=== PATIENT | female | born 1985 | race Two or more races ===

== ENCOUNTER 2016-08-07 16:45 | Inpatient (IN) | payer MEDICAID ==
[2016-08-07] MEDS ORDERED: OXYTOCIN IN LR 500 ML IV ONE ×2 (19:01→19:37)
[2016-08-07] MEDS ORDERED: LACTATED RINGERS 1,000 ML IV PRN (19:01)
[2016-08-07] MEDS ORDERED: IV START KIT ONE (19:36)
[2016-08-07] MEDS ORDERED: OXYTOCIN 10 UNITS/ML VIAL ONE (19:36)
[2016-08-07] MEDS ORDERED: LIDOCAINE Viscous 2% 15 ML UDCUP ONE (19:37)
[2016-08-07] MEDS ORDERED: LIDOCAINE 1% (PRES FREE) 30 ML VIAL ONE (19:37)
[2016-08-07] MEDS ORDERED: PUMP TUBING ONE (19:37)
[2016-08-07] MEDS ORDERED: MINERAL OIL 25 ML BOT ONE (19:37)
[2016-08-07] MEDS ORDERED: LACTATED RINGERS 1,000 ML ONE (19:37)
[2016-08-07 21:26] LABS: HEMATOCRIT 34.6 % (37.0-47.0); MEAN CELL VOLUME 84.6 fl (81.0-99.0); MEAN CORPUSCULAR HEMOGLOBIN 26.9 pg (27.0-31.0); MEAN CORPUSCULAR HGB CONC 31.8 g/dl (33.0-37.0); RED CELL DISTRIBUTION WIDTH 14.8 % (11.5-14.5)
[2016-08-07] MEDS ORDERED: OXYTOCIN IN NS 500 ML IV PRN (21:27)
[2016-08-07] MEDS ORDERED: LACTATED RINGERS 1,000 ML IV SCH (21:30)
[2016-08-07] MEDS: OXYTOCIN IN LR 500 ML IV PRN ×3 (21:43→23:41)
[2016-08-08] MEDS: OXYTOCIN IN LR 500 ML IV PRN ×4 (00:33→05:07)
[2016-08-08] MEDS ORDERED: EPIDURAL PUMP SET ONE (05:07)
[2016-08-08] MEDS ORDERED: FENTANYL/ROPIVACAINE EPIDURAL 0 ML EP ONE (05:07)
[2016-08-08] MEDS ORDERED: DOCUSATE SODIUM 100 MG CAPSULE PO PRN ×2 (05:49→18:08)
[2016-08-08] MEDS ORDERED: SENNOSIDES 8.6 MG TABLET PO PRN ×2 (05:49→18:08)
[2016-08-08] MEDS ORDERED: MAGNESIUM HYDROXIDE 30 ML UDCUP PO PRN ×2 (05:49→18:08)
[2016-08-08] MEDS ORDERED: BENZOCAINE/MENTHOL 60 APPLIC/BOT TP PRN ×2 (05:49→18:08)
[2016-08-08] MEDS ORDERED: LANOLIN 50 APPLIC/7G TUBE TP PRN ×2 (05:49→18:08)
[2016-08-08] MEDS ORDERED: HYDROCODONE/ACETAMINOPHEN 5/325MG TABLET PO PRN (05:49)
[2016-08-08] MEDS ORDERED: IBUPROFEN 800 MG TABLET PO PRN ×2 (05:49→18:08)
[2016-08-08 10:33] LABS: HIV-1/2 RAPID SCREEN NEGATIVE (NEGATIVE)
[2016-08-08] MEDS: LACTATED RINGERS 1,000 ML IV SCH ×2 (10:57→16:53)
--- NOTE | 2016-08-08 12:06 | PCMAN ---
OB Admission Note - History : 5 Term: 4 : 0 Abortions (S&E): 0 Livin Gestational Age (weeks): 40 Days (#/7): 0 Admit Cervical Dilation:: 3 Admit Cervical Effacement (%):: 50 Admit Station:: -3 Admit Presentaton:: Vertex Membrane Status: Intact Contractions: Yes Contraction Frequency:: q 3-5 min Heart Rate:: 150 Status:: reassuring EFW:: 7 Lbs Summary of Course:: Unremarkable course. Presents to [facility] with excruciating lower abdominal pain that began this morning at 8am. Pain only present when she moves her R leg or walks. She is comfortable while lying down. She does not feel the very regular contractions she has been having. No LOF, abnl vaginal d/c or VB. - Labs Blood Type: O (+) positive Rubella Status: Immune GBS Status: Negative Abnormal Labs: None - Review of Systems 12 point ROS negative except for excruciating low abdominal pain while walking or standing only - Physical Exam General: Severe Distress (when moving from bed, standing or walking) Lungs: Clear to Auscultation Bilaterally Cardiovascular: Regular Rate and Rhythm Abdomen: Other (Gravid, non-tender uterus. Exquisitely tender with pressure over symphysis pubis.) Extremities: Full ROM - Problems (1) Term Status: Acute Code: Z34.80Assessment/Plan: at 40wks w/likely symphysis pubis seperation and in pain, not able to ambulate. GBS negative. FHTs reassuring. -will admit for IOL -discussed likely need for epidural -will plan on XR after delivery (2) Sprain, symphysis pubis Status: Acute Code: S33.8XXAAssessment/Plan: Appears sprain/early seperation of symphysis pubis causing constant pain with walking and moving. -will check XR after delivery -pt likely will need epidural
--- NOTE | 2016-08-08 12:07 | PCMDEL ---
Delivery Note - Labor 1st stage (hr/min):: 3hrs 53min 2nd stage (hr/min):: 7 min 3rd stage (hr/min):: 4 min Total (hr/min):: 4hrs 4min Pushed (hr/min):: 3 min - Delivery Delivery (Date): 08/08/16 Delivery (Time): 05:22 Gender: Male Weight: 3.4 kg Presentation: Cephalic Position: OA Umbilical Cord: Nuchal Cord (x 2 reduced) Delayed Cord Clamping:: < 1-2 min 1 Minute Total: 9 5 Minute Total: 9 Placenta:: complete EBL:: 250ml Perineum:: no lacs Suture:: n/a Anesthesia/Meds:: Pitocin for augmentation, Pitocin 30 units for third stage Length ROM:: 1hr 24 min Comments:: Vigorous male delivered precipitously over intact perineum. There was a double nuchal cord that was easily removed during delivery. [place] was placed on mom's chest. Cord was clamped and cut >2 min. Pitocin 30 units for third stage management was given. Placenta delivered complete. There were no lac. EBL was 250ml
--- NOTE | 2016-08-08 13:32 | PDOC1 ---
- HPI 31 year old G5 now P5 after @ 40 wks who desires permanent sterilization. She is feeling fine this morning, is now NPO on 75ml/hr LR. Lochia is minimal. BF is going fine. - Problem List (1) Sprain, symphysis pubis Status: Acute (2) Normal spontaneous vaginal delivery Status: Acute (3) Sterilization Status: Acute SOCIAL HISTORY: Marital status: , FOB involved: yes, No Tobacco, alcohol use, or drug use. Allergies/Adverse Reactions: Allergies No Known Allergies Allergy (Unverified 08/07/16 19:10) per [facility] - Labs & Studies LABS: Blood Type-O+, Antibody [NEG], Rubella [Immune], RPR-[Negative], HbsAg-[Negative], HIV-[Negative] Repeat STD labs were drawn due to RN accidental exposure during fingerstick and results are pending. - Review of Systems 12 point ROS was normal. - Physical Exam Vital Signs: Temp Pulse Resp BP Pulse Ox 97.9 F 78 16 110/62 08/08/16 09:33 08/08/16 09:33 08/08/16 09:33 08/08/16 09:33 General: Afebrile, No Acute Distress Psych/Mental Status: Mood/Affect Appropriate Neurological: Alert, Oriented x 4 Lungs: Clear to Auscultation Bilaterally Cardiovascular: Regular Rate and Rhythm Abdomen: Other (firm uterus, fundus below umbilicus) Extremities: Full ROM Skin: Normal Color, Warm, Dry, Intact, No Rash - Assessment & Plan 31 y/o G5 now P5 s/p who desires permanent sterilization. She will be NPO today and the procedure is planned for 17:00. Discussed with patient the risks of bilateral tubal ligation including infection, bleeding possibly requiring blood transfusion, damage to underlying structures including bowel, uterus, tubes, ovaries. There is a 3-5/ 1000 chance of future ectopic . The patient agrees to proceed with a ppBTL. -routine pp care and support -re: symphysis pubis pain/separation. Pt is no longer c/o suprapubic pain and I will hold off on imaging at this point.
[2016-08-08 16:42] VITALS: BMI 34.5
[2016-08-08] MEDS ORDERED: FENTANYL 250 MCG/5 ML AMP ONE (16:47)
[2016-08-08] MEDS ORDERED: MIDAZOLAM HCL 5 MG/5 ML VIAL ONE (16:47)
[2016-08-08] MEDS ORDERED: ONDANSETRON 4 MG/2ML 2 ML VIAL ONE (17:44)
[2016-08-08] MEDS ORDERED: SPINAL PROCEDURAL TRAY 1 EACH ONE (17:44)
[2016-08-08] MEDS ORDERED: KETOROLAC TROMETHAMINE 30 MG/ML 1 ML VIAL ONE (17:50)
--- NOTE | 2016-08-08 18:15 | PCMBTL ---
Brief Post Op Note: Date of Procedure: 08/08/16 Start Time: 17:26 Preoperative Diagnosis: 1. Multiparity desiring permanent sterilization Postoperative Diagnosis: 1. [Same] Procedure: Bilateral Tubal Ligation via [place] Surgeon: Mayra Sosa MD Anesthesia: spinal Findings: Nl uterus, tubes and ovaries Condition: stable Complications: none IV Fluids: 700 mLs of LR Urine Output: n/a Estimated Blood Loss: < 20 mLs Specimens: segments of left and right tube sent for pathology
[2016-08-08] MEDS: OXYCODONE/ACETAMINOPHEN 5/325 MG TABLET PO PRN (22:00)
--- NOTE | 2016-08-09 10:55 | PDOC39B ---
Hospital Course: ADMIT DATE: 08/07/16 DISCHARGE DATE: 08/09/16 ADMISSION DIAGNOSES: Term Severe Symphysis Pubis Pain PROCEDURES/EVENTS: Induction of Labor for Severe Pain BTL HOSPITAL COURSE: 31 yo admitted on 08/07/16 for IOL for severe symphysis pubis pain. Patient was given Pitocin for augmentation and delivered a healthy male via at 3400 grams with EBL of 250 mL and Apgars of 9/9. Her course was uncomplicated. By the day of discharge the patient was ambulating, eating, voiding, and passing flatus without difficulty. Pain controlled and lochia appropriate. She is . She has BTL for control. Pediatric provider is [facility]. - Physical Exam Vital Signs: Temp Pulse Resp BP Pulse Ox 97.2 F 67 20 114/73 08/09/16 09:00 08/09/16 09:00 08/09/16 09:00 08/09/16 09:00 General: Afebrile Psych/Mental Status: Bonding Well Neurological: Oriented x 4 Lungs: Clear to Auscultation Bilaterally Cardiovascular: Regular Rate and Rhythm Fundus: Firm, Below Umbilicus Abdomen: Normal Bowel Sounds - Discharge Diagnosis (1) Normal spontaneous vaginal delivery Status: AcuteAssessment/Plan: Doing well Normal exam OK to discharge home today (2) Sterilization Status: AcuteAssessment/Plan: BTL yesterday - Discharge Plan Condition: Stable Disposition: Home Instruction Forms: Vaginal Discharge Instructions Prescriptions: Docusate Sodium [COLACE 100 MG CAPSULE (SHF)] 100 mg PO DAILY PRN #60 PRN Reason: Comfort Ibuprofen [IBUPROFEN 800 MG TABLET (SHF)] 800 mg PO Q6H PRN #60 PRN Reason: Pain (Mild) Oxycodone HCl/Acetaminophen [PERCOCET 5/325 MG TABLET (SHF)] 1 - 2 tab PO Q4H PRN #20 PRN Reason: Pain (Moderate) Sennosides [SENOKOT 8.6 MG TABLET (SHF)] 17.2 mg PO BEDTIME PRN #60 PRN Reason: Comfort Follow-Up: Mary Babb MD [Primary Care Provider] - In 6 weeks ( visit)
[2016-08-09 12:18] LABS: HEP BS AB CONCENTRATION <3.10 mIU/ml (()); HEPATITIS B SURFACE AB Non React (Non React); HEPATITUS C VIRUS ANTIBODY Non React (Non React)
[2016-08-09] MEDS: OXYCODONE/ACETAMINOPHEN 5/325 MG TABLET PO PRN (13:13)
[2016-08-09 13:46] VITALS: BP 120/59
--- NOTE | 2016-08-11 10:52 | SURGPATH ---
[facility] [address] [place] [id number] Patient Name: GRETTA AMOS MR#: [id number] : 1985 Gender: F Specimen #: [id number] Collected: 08/08/2016 Received: 08/10/2016 Reported: 08/11/2016 Submitting Phys: IAIN LANDAVERDE Copy To Phys: [facility] ALEJ[facility]A [facility]ING Clinical History / Pre-Operative Diagnosis: Bilateral tubal ligation Specimen Source / Surgical Procedure Performed: Bilateral fallopian tube segments Interpretation: RIGHT AND LEFT FALLOPIAN TUBES, TUBAL LIGATION: -SEGMENTS OF FALLOPIAN TUBES PRESENT Electronically Signed Out Kirill Suazo M.D. Gross Description: The specimen is received in formalin labeled with the patient's name and "right and left fallopian tube segments". The specimen consists of two 1.5 cm bernal rubbery non-fimbriated tubes. The right has a suture and is marked with black ink for identification. Script Artist submitted in one cassette. ROQUE Euceda Microscopic Description: A slide contains unremarkable cross sections of both fallopian tubes. 1: [id number]) Z30.2
== END 2016-08-09 13:58 | disposition home or self-care (01) | DRG 767 ==
LOC: FBCOUT 16:45 → FBC 16:56 → FBCOUT 19:06 → FBC 19:06
PROVIDERS: ADMIT Family Medicine; ATTEND Family Medicine
PROC: 10E0XZZ Delivery of Products of Conception, External Approach (ICD-10-PCS; principal; 2016-08-08)
PROC: 0UL70ZZ Occlusion of Bilateral Fallopian Tubes, Open Approach (ICD-10-PCS; 2016-08-08)
DX: O71.6 Obstetric damage to pelvic joints and ligaments (principal); Z37.0 Single live birth; O69.81X0 Labor and delivery complicated by cord around neck, without compression, not applicable or unspecified; O62.3 Precipitate labor; Z30.2 Encounter for sterilization; Z3A.40 40 weeks gestation of pregnancy